=== PATIENT | male | born 1975 | race Caucasian/White ===

== ENCOUNTER 2023-07-23 04:54 | Inpatient (IN) | payer OTHER ==
[2023-07-23] MEDS ORDERED: LORazepam 2 MG/ML INJ IV PRN (05:12)
[2023-07-23] MEDS ORDERED: THIAMINE 100 MG/ML 2 ML VIAL IM STA (05:12)
--- NOTE | 2023-07-23 05:16 | ED ---
General Adult HPI - General Chief complaint: Alcohol Stated complaint: DTs Time Seen by Provider: 07/23/23 04:57 Source: patient, EMS Mode of arrival: EMS Limitations: altered mental status - History of Present Illness Initial comments: Dictation was produced using [employer] dictation software. please excuse any grammatical, word or spelling errors. Chief Complaint: 47-year-old male presents to the ER from [facility] detox facility for suspicion of delirium tremens History of Present Illness: Is a 47-year-old man is a poor historian. He has been injected and [facility] for the last couple days. He was noted to have some signs of hallucinations today. He was seen by medical staff and was sent to the ER for delirium treatments. Patient states he drinks a fifth of liquor daily prior to being at [facility]. He has no pain complaints. According to detox facility documentation is benign hallucinations and having nonsensical speech conversations with people that aren't there. The ROS documented in this emergency department record has been reviewed and confirmed by me. Those systems with pertinent positive or negative responses have been documented in the HPI. All other systems are other negative and/or noncontributory. - Related Data Allergies Allergy/AdvReac Type Severity Reaction Status Date / Time No Known Allergies Allergy Verified 07/23/23 05:45 Review of Systems ROS Statement: Those systems with pertinent positive or pertinent negative responses have been documented in the HPI. ROS Other: All systems not noted in ROS Statement are negative. General Exam - General Exam Comments Initial Comments: PHYSICAL EXAM: General Impression: Alert and oriented x3/4, tremulous HEENT: Normocephalic atraumatic, extra-ocular movements intact, pupils equal and reactive to light bilaterally, mucous membranes moist. Cardiovascular: Heart regular rate and rhythm Chest: Able to complete full sentences, no retractions, no tachypnea Abdomen: abdomen soft, non-tender, non-distended, no organomegaly Musculoskeletal: Pulses present and equal in all extremities, no peripheral edema Motor: no focal deficits noted Neurological: CN II-XII grossly intact, no focal motor or sensory deficits noted Skin: Intact with no visualized rashes Limitations: altered mental status Course Vital Signs 07/23/23 07/23/23 04:55 05:03 Temperature 98.4 F Pulse Rate 86 76 Respiratory 18 18 Rate Blood Pressure 109/72 109/72 O2 Sat by Pulse 96 Oximetry EKG Findings - EKG Comments: EKG Findings:: My EKG interpretation: Ventricular rate 80, sinus rhythm,. Interval 96, QRS 92, QTc 44. No TN prolongation, no QTC prolongation, no ST or T-wave changes noted. Overall, this EKG is unremarkable Medical Decision Making - Medical Decision Making Was pt. sent in by a medical professional or institution (, PA, PULP TESTER, urgent care, hospital, or prison...) When possible be specific @ -[facility] Did you speak to anyone other than the patient for history (EMS, parent, family, police, friend...)? What history was obtained from this source @ -No Did you review nursing and triage notes (agree or disagree)? Why? @ -I reviewed and agree with nursing and triage notes Were old charts reviewed (outside hosp., previous admission, EMS record, old EKG, old radiological studies, urgent care reports/EKG's, prison records)? Report findings @ -[facility] documents reviewed Differential Diagnosis (chest pain, altered mental status, abdominal pain women, abdominal pain men, vaginal bleeding, musculoskeletal, weakness, fever, dyspnea, syncope, headache, dizziness, GI bleed, back pain, seizure, CVA, palpatations, mental health)? @ -Differential Altered Mental Status: Hypoglycemia, DKA, hypercapnia, ETOH, overdose, CO poisoning, trauma, myxedema coma, HTN encephalopathy, infection, encephalitis, psychosis, intercranial hemorrhage, hepatic encephalopathy, meningitis, CVA, this is not meant to be an all-inclusive list EKG interpreted by me (3pts min.). @ -as above X-rays interpreted by me (1pt min.). @ -None done CT interpreted by me (1pt min.). @ -None done U/S interpreted by me (1pt. min.). @ -None done What testing was considered but not performed or refused? (CT, X-rays, U/S, labs)? Why? @ -None What meds were considered but not given or refused? Why? @ -None Did you discuss the management of the patient with other professionals (professionals i.e. , PA, PULP TESTER, lab, RT, psych nurse, social worker school, fisher swordfish, teacher, restoration officer, pillowcase maker)? Give summary @ -No Was smoking cessation discussed for >3mins.? @ -No Was critical care preformed (if so, how long)? @ -No Were there social determinants of health that impacted care today? How? (Homelessness, low income, unemployed, alcoholism, drug addiction, t ransportation, low edu. Level, literacy, decrease access to med. care, fpc, rehab)? @ -No Was there de-escalation of care discussed even if they declined (Discuss DNR or withdrawal of care, Hospice)? DNR status @ -No What co-morbidities impacted this encounter? (DM, HTN, Smoking, COPD, CAD, Cancer, CVA, ARF, Chemo, Hep., AIDS, mental health diagnosis, sleep apnea, morbid obesity)? @ -None Was patient admitted / discharged? Hospital course, mention meds given and route, prescriptions, significant lab abnormalities, going to OR and other pertinent info. @ -47-year-old male presents to the ER for signs of severe alcohol withdrawal. Vital signs are stable however patient is very tremulous at the bedside. Labs are within acceptable limits. Slight hyponatremia 1:30. Patient treated with IV fluids Patient likely benefit from inpatient treatment of alcohol withdrawal. Case discussed with Edda who is willing to accept patient care on behalf of a mission hospitalist group Undiagnosed new problem with uncertain prognosis? @ -No Drug Therapy requiring intensive monitoring for toxicity (Heparin, Nitro, Insulin, Cardizem)? @ -No Were any procedures done? @ -No Diagnosis/symptom? Acute, or Chronic, or Acute on Chronic? Uncomplicated (without systemic symptoms) or Complicated (systemic symptoms)? @ -. Alcohol withdrawal Side effects of treatment? @ -No Exacerbation, Progression, or Severe Exacerbation? @ -No Poses a threat to life or bodily function? How? (Chest pain, USA, PR, pneumonia, PE, COPD, DKA, ARF, appy, cholecystitis, CVA, Diverticulitis, Homicidal, Suicidal, threat to staff... and all critical care pts) @ -yes - Lab Data Result diagrams: 07/23/23 05:24 07/23/23 05:24 Lab Results 07/23/23 07/23/23 07/23/23 Range/Units 05:24 05:24 05:24 WBC 8.7 (3.8-10.6) k/uL RBC 4.05 L (4.30-5.90) m/uL Hgb 14.4 (13.0-17.5) gm/dL Hct 39.8 (39.0-53.0) % MCV 98.3 (80.0-100.0) fL MCH 35.4 H (25.0-35.0) pg MCHC 36.1 (31.0-37.0) g/dL RDW 11.8 (11.5-15.5) % Plt Count 214 (150-450) k/uL MPV 8.6 Neutrophils % 68 % Lymphocytes % 19 % Monocytes % 10 % Eosinophils % 1 % Basophils % 0 % Neutrophils # 5.9 (1.3-7.7) k/uL Lymphocytes # 1.6 (1.0-4.8) k/uL Monocytes # 0.8 (0-1.0) k/uL Eosinophils # 0.1 (0-0.7) k/uL Basophils # 0.0 (0-0.2) k/uL Sodium 130 L (137-145) mmol/L Potassium 5.0 (3.5-5.1) mmol/L Chloride 93 L (98-107) mmol/L Carbon Dioxide 26 (22-30) mmol/L Anion Gap 11 mmol/L BUN 20 (9-20) mg/dL Creatinine 0.90 (0.66-1.25) mg/dL Est GFR (CKD-EPI)AfAm >90 (>60 ml/min/1.73 sqM) Est GFR (CKD-EPI)NonAf >90 (>60 ml/min/1.73 sqM) Glucose 144 H (74-99) mg/dL Plasma Lactic Acid Christian 1.0 (0.7-2.0) mmol/L Calcium 9.9 (8.4-10.2) mg/dL Magnesium 1.1 L (1.6-2.3) mg/dL Total Bilirubin 1.5 H (0.2-1.3) mg/dL AST 55 (17-59) U/L ALT 41 (4-49) U/L Alkaline Phosphatase 50 (38-126) U/L Total Protein 8.0 (6.3-8.2) g/dL Albumin 4.4 (3.5-5.0) g/dL Serum Alcohol <10 mg/dL Disposition Clinical Impression: Alcohol withdrawal syndrome Disposition: ADMITTED IP TO THIS HOSP Condition: Fair Decision Time: 05:54
[2023-07-23] MEDS: LORazepam 2 MG/ML INJ IV PRN ×4 (05:27→20:08)
[2023-07-23 05:46] LABS: ALT 41 U/L (4-49); AST 55 U/L (17-59); African American GFR (CKD) >90 (>60 ml/min/1.73 sqM); Albumin 4.4 g/dL (3.5-5.0); Alcohol <10 mg/dL; Alkaline Phosphatase 50 U/L (38-126); Anion Gap 11 mmol/L; Blood Urea Nitrogen 20 mg/dL (9-20); Calcium 9.9 mg/dL (8.4-10.2); Carbon Dioxide 26 mmol/L (22-30); Chloride 93 mmol/L (98-107); Glucose 144 mg/dL (74-99); Magnesium 1.1 mg/dL (1.6-2.3); Non-African American GFR(CKD) >90 (>60 ml/min/1.73 sqM); Sodium 130 mmol/L (137-145); Total Bilirubin 1.5 mg/dL (0.2-1.3)
[2023-07-23] MEDS ORDERED: NALOXONE 0.4 MG/ML 1 ML VIAL IV PRN (05:53)
[2023-07-23 05:58] LABS: Basophils % (A) 0 %; Eosinophils # (A) 0.1 k/uL (0-0.7); Eosinophils % (A) 1 %; HCT 39.8 % (39.0-53.0); HGB 14.4 gm/dL (13.0-17.5); Lymphocytes # (A) 1.6 k/uL (1.0-4.8); Lymphocytes % (A) 19 %; MCH 35.4 pg (25.0-35.0); MCHC 36.1 g/dL (31.0-37.0); MCV 98.3 fL (80.0-100.0); Mean Platelet Volume 8.6; Monocytes # (A) 0.8 k/uL (0-1.0); Monocytes % (A) 10 %; Neutrophils # (A) 5.9 k/uL (1.3-7.7); Neutrophils % (A) 68 %; Platelet Count 214 k/uL (150-450); RBC 4.05 m/uL (4.30-5.90); RDW 11.8 % (11.5-15.5); WBC 8.7 k/uL (3.8-10.6)
[2023-07-23] MEDS: SODIUM CHLORIDE 0.9% 1,000 ML IV SCH (06:32)
[2023-07-23] MEDS ORDERED: Magnesium Replacement Protocol 1 EACH MISC MISCELLANE PRN (07:43)
[2023-07-23] MEDS ORDERED: ACETAMINOPHEN TAB 325 MG TAB PO PRN (07:44)
[2023-07-23] MEDS ORDERED: ONDANSETRON 4 MG/2 ML VIAL IVP PRN (07:44)
[2023-07-23] MEDS: MAGNESIUM SULFATE-D5W PMX 1 GM in DEXTROSE/WATER 1 100ML.BAG IVPB SCH ×4 (09:03→17:38)
[2023-07-23] MEDS: PANTOPRAZOLE 40 MG/10 ML VIAL IVP SCH (09:03)
[2023-07-23] MEDS ORDERED: HALOPERIDOL LACTATE 5 MG/ML 1 ML VIAL IM PRN (11:01)
[2023-07-23] MEDS: FOLIC ACID 1 MG TAB PO SCH (12:06)
--- NOTE | 2023-07-23 12:29 | P.CN ---
Psychiatric Consult - . Consult date: 07/23/23 Consult:: 07/23/23 12:27 IDENTIFYING DATA: This patient is a single, recently unemployed, 47-year-old male with a significant history of alcohol use disorder presents for hospital on 07/23/2023 presenting from [facility] detox with concerns for delirium tremens. HISTORY OF PRESENT ILLNESS: The patient presented to the hospital on 07/23/2023, brought into the emergency department from [facility] after experiencing hallucinations and gross disorganization. According to the detox facility documentation, the patient began having hallucinations and displayed nonsensical speech during conversations. He was subsequently transferred to [facility] admitted medically for concerns for severe alcohol withdrawal. Psychiatry has been consulted for hallucinations and alcohol detoxification. Upon evaluation by this provider, the patient is currently alert and oriented in all spheres. He is currently denying any suicidal or homicidal ideation, intention, and/or plan. He reports no prior attempts at suicide. 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 He reports that his last alcoholic beverages approximately a week ago. He reports that he has been drinking up to a fifth of liquor per day for the past 20 years. He reports that the longest time he has been sober was for a year shortly after being discharged from care home on a drinking and driving charge. He is denying any significant history of hien or hypomania. He reports no increased goal-directed activity, grandiosity, or periods of excessive energy. In regards to psychosis, the patient is vehemently denying any auditory or visual hallucinations at this time. He reports that this was the first time he experienced hallucinations. He is vehemently denying any paranoia or other delusions. He does report that he has had tremors in the past however denies any history of seizures. He expresses a desire to return to [facility] upon detoxification. PAST PSYCHIATRIC HISTORY: Patient has a history of alcohol use disorder. Patient denies being on any psychiatric medications. Patient denies any previous psychiatric hospitalizations. Patient denies any psychiatric outpatient follow- up. Patient denies any history of suicide attempts in the past. PAST MEDICAL HISTORY: No reported medical issues. Reports hypertension. ALLERGIES: NO KNOWN DRUG ALLERGIES CHEMICAL DEPENDENCY HISTORY: The patient reports that he has been drinking up to a fifth of liquor per day with his last drink being approximately week ago. FAMILY PSYCHIATRIC/SUBSTANCE USE HISTORY: denies SOCIAL HISTORY: Patient was born and raised in [place], [place]. He is single, never , and has no children. 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 He does report significant support from his mother and siblings. MENTAL STATUS EXAM: General Appearance: Patient appears to be stated age is alert, pleasant, and cooperative. Patient appears to have fair hygiene and grooming wearing hospital gown with fair eye contact. Behavior: Patient is calmly lying in bed without any agitated behavior. Speech: Patient's speech is fluent and nonpressured. Mood/Affect: Patient reports their mood is "feeling better", affect is congruent Suicidality/Homicidality: Patient denies having any suicidal or homicidal ideation intent or plan. Perceptions: Patient denies any visual hallucinations and denies any auditory hallucinations Though content/process: There is no evidence of any delusional thought content and thought process is linear and goal-directed. Memory and concentration: AOX3, grossly intact for the purposes of this session. Can spell "WORLD" backwards Judgment and insight: Fair IMPRESSIONS: Alcohol withdrawal with delirium tremens Alcohol use disorder PLAN: -Continue your medical management for acute alcohol withdrawal and delirium tremens. Agree with CIWA protocol with Ativan when necessary. -At this time patient DOES NOT meet criteria for inpatient psychiatric admission. The patient is not presenting with an imminent risk of harm to self or others. He is currently not manic or psychotic. -Would recommend the following medication changes/additions: No medication recommendations were made at this time. May consider the use of the Librium. -Patient wishes to pursue inpatient rehabilitation back at [facility] upon stabilization. Recommend outpatient follow-up for substance abuse. -Psychiatry will sign off at this point, please contact with any questions. Vital Signs Temp 97.4 F L 07/23/23 09:28 Pulse 66 07/23/23 09:28 Resp 18 07/23/23 09:28 BP 148/99 07/23/23 09:28 Pulse Ox 99 07/23/23 09:28 FiO2 Intake & Output 07/22/23 07/23/23 07/23/23 18:59 06:59 18:59 Weight 94.347 kg Other: Voiding Method Toilet Laboratory Results WBC 8.7 k/uL (3.8-10.6) 07/23/23 05:24 RBC 4.05 m/uL (4.30-5.90) L 07/23/23 05:24 Hgb 14.4 gm/dL (13.0-17.5) 07/23/23 05:24 Hct 39.8 % (39.0-53.0) 07/23/23 05:24 MCV 98.3 fL (80.0-100.0) 07/23/23 05:24 MCH 35.4 pg (25.0-35.0) H 07/23/23 05:24 MCHC 36.1 g/dL (31.0-37.0) 07/23/23 05:24 RDW 11.8 % (11.5-15.5) 07/23/23 05:24 Plt Count 214 k/uL (150-450) 07/23/23 05:24 MPV 8.6 07/23/23 05:24 Neutrophils % 68 % 07/23/23 05:24 Lymphocytes % 19 % 07/23/23 05:24 Monocytes % 10 % 07/23/23 05:24 Eosinophils % 1 % 07/23/23 05:24 Basophils % 0 % 07/23/23 05:24 Neutrophils # 5.9 k/uL (1.3-7.7) 07/23/23 05:24 Lymphocytes # 1.6 k/uL (1.0-4.8) 07/23/23 05:24 Monocytes # 0.8 k/uL (0-1.0) 07/23/23 05:24 Eosinophils # 0.1 k/uL (0-0.7) 07/23/23 05:24 Basophils # 0.0 k/uL (0-0.2) 07/23/23 05:24 Sodium 130 mmol/L (137-145) L 07/23/23 05:24 Potassium 5.0 mmol/L (3.5-5.1) 07/23/23 05:24 Chloride 93 mmol/L (98-107) L 07/23/23 05:24 Carbon Dioxide 26 mmol/L (22-30) 07/23/23 05:24 Anion Gap 11 mmol/L 07/23/23 05:24 BUN 20 mg/dL (9-20) 07/23/23 05:24 Creatinine 0.90 mg/dL (0.66-1.25) 07/23/23 05:24 Est GFR (CKD-EPI)AfAm >90 (>60 ml/min/1.73 sqM) 07/23/23 05:24 Est GFR (CKD-EPI)NonAf >90 (>60 ml/min/1.73 sqM) 07/23/23 05:24 Glucose 144 mg/dL (74-99) H 07/23/23 05:24 Plasma Lactic Acid Christian 1.0 mmol/L (0.7-2.0) 07/23/23 05:24 Calcium 9.9 mg/dL (8.4-10.2) 07/23/23 05:24 Magnesium 1.1 mg/dL (1.6-2.3) L 07/23/23 05:24 Total Bilirubin 1.5 mg/dL (0.2-1.3) H 07/23/23 05:24 AST 55 U/L (17-59) 07/23/23 05:24 ALT 41 U/L (4-49) 07/23/23 05:24 Alkaline Phosphatase 50 U/L (38-126) 07/23/23 05:24 Total Protein 8.0 g/dL (6.3-8.2) 07/23/23 05:24 Albumin 4.4 g/dL (3.5-5.0) 07/23/23 05:24 Serum Alcohol <10 mg/dL 07/23/23 05:24 Allergies Allergy/AdvReac Type Severity Reaction Status Date / Time No Known Allergies Allergy Verified 07/23/23 07:44 07/23/23 12:28
--- NOTE | 2023-07-23 13:20 | P.HPIM ---
History of Present Illness H&P Date: 07/23/23 History of present illness; patient is a 47-year-old gentleman with past medical history significant for alcohol abuse who is a transfer from [place] for suspicion of impending DTs. Patient has history of alcohol abuse and has admitted to consuming one fifth of liquor everyday. Patient was being treated [place] for the last couple of days. Patient has been showing signs of hallucinations this morning. Patient was talking on his own with people and maintaining conversations but no one was around. There was no thoughts of hurting himself. No thoughts of Hurting anybody else. Patient was worked up at [facility] Initial lab work done in the ER showed WBC 8.7, hemoglobin 14.4, platelet count 214, sodium 1:30, potassium 5, BUN 20, creatinine 0.9, glucose 144, magnesium 1.1 patient was admitted to medicine service REVIEW OF SYSTEMS: CONSTITUTIONAL: No fever, no malaise, no fatigue. HEENT: No recent visual problems or hearing problems. Denied any sore throat. CARDIOVASCULAR: No chest pain, orthopnea, PND, no palpitations, no syncope. PULMONARY: No shortness of breath, no cough, no hemoptysis. GASTROINTESTINAL: No diarrhea, no nausea, no vomiting, no abdominal pain. NEUROLOGICAL: No headaches, no weakness, no numbness. HEMATOLOGICAL: Denies any bleeding or petechiae. GENITOURINARY: Denies any burning micturition, frequency, or urgency. MUSCULOSKELETAL/RHEUMATOLOGICAL: Denies any joint pain, swelling, or any muscle pain. ENDOCRINE: Denies any polyuria or polydipsia. The rest of the 14-point review of systems is negative. PHYSICAL EXAMINATION: GENERAL: The patient is alert and oriented x3, patient very shaky and restless. Tremulous HEENT: Pupils are round and equally reacting to light. EOMI. No scleral icterus. No conjunctival pallor. Normocephalic, atraumatic. No pharyngeal erythema. No thyromegaly. CARDIOVASCULAR: S1 and S2 present. No murmurs, rubs, or gallops. PULMONARY: Chest is clear to auscultation, no wheezing or crackles. ABDOMEN: Soft, nontender, nondistended, normoactive bowel sounds. No palpable organomegaly. MUSCULOSKELETAL: No joint swelling or deformity. EXTREMITIES: No cyanosis, clubbing, or pedal edema. NEUROLOGICAL: Gross neurological examination did not reveal any focal deficits. SKIN: No rashes. Assessment and plan DTs Alcohol detox Hypomagnesemia Alcohol abuse Monitor vital signs Monitor CBC Monitor CMP Continue telemetry monitoring Continue antiemetics Continue IV fluids Continue CIWA protocol Continue high dose thiamine and folic acid Replace magnesium Consults psychiatry Labs and medication were reviewed.. Continue same treatment. Continue with symptomatic treatment. Resume home medication. Monitor labs and vitals. DVT and GI prophylaxis. Further recommendations as per clinical course of the patient Dictation was produced using [employer] dictation software. please excuse any grammatical, word or spelling errors. Medications and Allergies Home Medications Medication Instructions Recorded Confirmed Type Acetaminophen Tab [Tylenol] 650 mg PO Q4H PRN 07/23/23 07/23/23 History Calcium, Magnesium, Zinc, With 1 tab PO TID PRN 07/23/23 07/23/23 History Vitamin D3 Chlorpheniramine Maleate 4 mg PO Q4H PRN 07/23/23 07/23/23 History [Chlor-Trimeton] Ibuprofen [Motrin Ib] 600 mg PO Q6H PRN 07/23/23 07/23/23 History LORazepam [Ativan] 1 - 2 mg PO DIRECTED 07/23/23 07/23/23 History Loperamide HCl [Imodium A-D] 4 mg PO QID PRN 07/23/23 07/23/23 History Multivitamins, Thera [Multivitamin 1 tab PO DAILY 07/23/23 07/23/23 History (formulary)] atenoloL [Tenormin] 50 mg PO DAILY 07/23/23 07/23/23 History cloNIDine HCL [Catapres] 0.1 - 0.3 mg PO DIRECTED PRN 07/23/23 07/23/23 History hydroCHLOROthiazide [Hydrodiuril] 25 mg PO DAILY 07/23/23 07/23/23 History ondansetron HCL [Zofran] 8 mg PO Q6H PRN 07/23/23 07/23/23 History traZODone HCL [Desyrel] 50 - 150 mg PO HS PRN 07/23/23 07/23/23 History Allergies Allergy/AdvReac Type Severity Reaction Status Date / Time No Known Allergies Allergy Verified 07/23/23 07:44 Physical Exam Vitals: Vital Signs Temp Pulse Resp BP Pulse Ox 07/23/23 07:35 87 20 100/74 94 L 07/23/23 05:03 76 18 109/72 96 07/23/23 04:55 98.4 F 86 18 109/72 Intake and Output 07/22/23 07/23/23 07/23/23 22:59 06:59 14:59 Other: Voiding Method Toilet Weight 94.347 kg Results CBC & Chem 7: 07/23/23 05:24 07/23/23 05:24 Labs: Abnormal Lab Results - Last 24 Hours (Table) 07/23/23 07/23/23 Range/Units 05:24 05:24 RBC 4.05 L (4.30-5.90) m/uL MCH 35.4 H (25.0-35.0) pg Sodium 130 L (137-145) mmol/L Chloride 93 L (98-107) mmol/L Glucose 144 H (74-99) mg/dL Magnesium 1.1 L (1.6-2.3) mg/dL Total Bilirubin 1.5 H (0.2-1.3) mg/dL
[2023-07-23] MEDS: THIAMINE 100 MG TAB PO SCH ×2 (17:38→20:09)
[2023-07-24] MEDS: LORazepam 2 MG/ML INJ IV PRN (00:27)
[2023-07-24] MEDS: SODIUM CHLORIDE 0.9% 1,000 ML IV SCH (05:27)
[2023-07-24 08:56] LABS: HCT 43.9 % (39.0-53.0); HGB 15.5 gm/dL (13.0-17.5); MCH 36.1 pg (25.0-35.0); MCHC 35.2 g/dL (31.0-37.0); MCV 102.7 fL (80.0-100.0); Macrocytosis Slight; Mean Platelet Volume 8.3; Platelet Count 223 k/uL (150-450); RBC 4.28 m/uL (4.30-5.90); WBC 9.1 k/uL (3.8-10.6)
[2023-07-24] MEDS ORDERED: THIAMINE 100 MG TAB PO SCH (09:00)
[2023-07-24 09:19] LABS: ALT 43 U/L (4-49); AST 56 U/L (17-59); African American GFR (CKD) >90 (>60 ml/min/1.73 sqM); Albumin 4.3 g/dL (3.5-5.0); Alkaline Phosphatase 59 U/L (38-126); Anion Gap 10 mmol/L; Blood Urea Nitrogen 17 mg/dL (9-20); Calcium 9.2 mg/dL (8.4-10.2); Carbon Dioxide 26 mmol/L (22-30); Chloride 98 mmol/L (98-107); Glucose 116 mg/dL (74-99); Magnesium 1.9 mg/dL (1.6-2.3); Non-African American GFR(CKD) >90 (>60 ml/min/1.73 sqM); Potassium 4.6 mmol/L (3.5-5.1); Sodium 134 mmol/L (137-145); Total Bilirubin 1.2 mg/dL (0.2-1.3); Total Protein 7.5 g/dL (6.3-8.2)
[2023-07-24 09:30] VITALS: RESP 16; TEMP 97.8
[2023-07-24] MEDS: FOLIC ACID 1 MG TAB PO SCH (12:08)
[2023-07-24] MEDS: THIAMINE 100 MG TAB PO SCH (12:08)
[2023-07-24] MEDS: PANTOPRAZOLE 40 MG/10 ML VIAL IVP SCH (12:08)
[2023-07-24 12:38] VITALS: BP 140/79; PULSE 74
--- NOTE | 2023-07-24 13:07 | P.DS ---
Providers Date of admission: 07/23/23 05:53 Expected date of discharge: 07/24/23 Attending physician: Armand Vallejo Consults: 07/23/23 09:57 Consult Physician Routine Consulting Provider: Juanjose Bain Consult Reason/Comments: Alcohol detox, hallucinating. Do you want consulting provider notified?: Yes Primary care physician: Physician Nonstaff Hospital Course: Discharge diagnoses; DTs Alcohol detox Hypomagnesemia Alcohol abuse Hospital course; patient is a 47-year-old gentleman with past medical history significant for alcohol abuse who is a transfer from [place] for suspicion of impending DTs. Patient has history of alcohol abuse and has admitted to consuming one fifth of liquor everyday. Patient was being treated [place] for the last couple of days. Patient has been showing signs of hallucinations this morning. Patient was talking on his own with people and maintaining conversations but no one was around. There was no thoughts of hurting himself. No thoughts of Hurting anybody else. Patient was worked up at [facility] Initial lab work done in the ER showed WBC 8.7, hemoglobin 14.4, platelet count 214, sodium 1:30, potassium 5, BUN 20, creatinine 0.9, glucose 144, magnesium 1.1 patient was admitted to medicine service 07/24. Patient seen and examined. Patient CIWA scores have been low. Patient keen to be discharged. We'll discharged on thiamine and folic acid PHYSICAL EXAMINATION: GENERAL: The patient is alert and oriented x3, not in any acute distress. Well developed, well nourished. HEENT: Pupils are round and equally reacting to light. EOMI. No scleral icterus. No conjunctival pallor. Normocephalic, atraumatic. No pharyngeal erythema. No thyromegaly. CARDIOVASCULAR: S1 and S2 present. No murmurs, rubs, or gallops. PULMONARY: Chest is clear to auscultation, no wheezing or crackles. ABDOMEN: Soft, nontender, nondistended, normoactive bowel sounds. No palpable organomegaly. MUSCULOSKELETAL: No joint swelling or deformity. EXTREMITIES: No cyanosis, clubbing, or pedal edema. NEUROLOGICAL: Gross neurological examination did not reveal any focal deficits. SKIN: No rashes. Dictation was produced using [employer] software. please excuse any grammatical, word or spelling errors. Patient Condition at Discharge: Fair Plan - Discharge Summary Discharge Rx Participant: No New Discharge Prescriptions: New Folic Acid 1 mg PO DAILY #30 tablet Thiamine [Vitamin B-1] 100 mg PO DAILY #30 tablet Continue traZODone HCL [Desyrel] 50 - 150 mg PO HS PRN PRN Reason: SLEEP Acetaminophen Tab [Tylenol] 650 mg PO Q4H PRN PRN Reason: Pain Or Fever > 100.5 Chlorpheniramine Maleate [Chlor-Trimeton] 4 mg PO Q4H PRN PRN Reason: WITHDRAWL SYMPTOMS LORazepam [Ativan] 1 - 2 mg PO DIRECTED ondansetron HCL [Zofran] 8 mg PO Q6H PRN PRN Reason: Nausea Multivitamins, Thera [Multivitamin (formulary)] 1 tab PO DAILY Ibuprofen [Motrin Ib] 600 mg PO Q6H PRN PRN Reason: Pain Or Fever > 100.5 Loperamide HCl [Imodium A-D] 4 mg PO QID PRN PRN Reason: Diarrhea cloNIDine HCL [Catapres] 0.1 - 0.3 mg PO DIRECTED PRN PRN Reason: FOR BP >160/100 Calcium, Magnesium, Zinc, With Vitamin D3 1 tab PO TID PRN PRN Reason: WITHDRAWL SYMPTOMS hydroCHLOROthiazide [Hydrodiuril] 25 mg PO DAILY atenoloL [Tenormin] 50 mg PO DAILY Discharge Medication List Acetaminophen Tab [Tylenol] 650 mg PO Q4H PRN 07/23/23 [History] Calcium, Magnesium, Zinc, With Vitamin D3 1 tab PO TID PRN 07/23/23 [History] Chlorpheniramine Maleate [Chlor-Trimeton] 4 mg PO Q4H PRN 07/23/23 [History] Ibuprofen [Motrin Ib] 600 mg PO Q6H PRN 07/23/23 [History] LORazepam [Ativan] 1 - 2 mg PO DIRECTED 07/23/23 [History] Loperamide HCl [Imodium A-D] 4 mg PO QID PRN 07/23/23 [History] Multivitamins, Thera [Multivitamin (formulary)] 1 tab PO DAILY 07/23/23 [History] atenoloL [Tenormin] 50 mg PO DAILY 07/23/23 [History] cloNIDine HCL [Catapres] 0.1 - 0.3 mg PO DIRECTED PRN 07/23/23 [History] hydroCHLOROthiazide [Hydrodiuril] 25 mg PO DAILY 07/23/23 [History] ondansetron HCL [Zofran] 8 mg PO Q6H PRN 07/23/23 [History] traZODone HCL [Desyrel] 50 - 150 mg PO HS PRN 07/23/23 [History] Folic Acid 1 mg PO DAILY #30 tablet 07/24/23 [Rx] Thiamine [Vitamin B-1] 100 mg PO DAILY #30 tablet 07/24/23 [Rx] Follow up Appointment(s)/Referral(s): None,Stated [REFERRING] - 1-2 days Discharge Disposition: HOME SELF-CARE
== END 2023-07-24 15:03 | disposition home or self-care (01) | DRG 775 ==
LOC: EC 04:54 → 3SCARD 05:53
PROVIDERS: ADMIT Hospitalist; ATTEND Hospitalist
PROC: HZ2ZZZZ Detoxification Services for Substance Abuse Treatment (ICD-10-PCS; principal; 2023-07-23)
DX: F10.231 Alcohol dependence with withdrawal delirium (principal); E83.42 Hypomagnesemia; Z79.899 Other long term (current) drug therapy; Z71.41 Alcohol abuse counseling and surveillance of alcoholic
CPT/HCPCS: 36415; 80053; 80320; 83605; 83735; 85025; 85027; 93005; 96372; 96374; 96376; 99285